=== PATIENT | female | born 1985 | race Caucasian/White ===

== ENCOUNTER 2018-05-08 20:24 | Emergency (ER) | payer OTHER, MEDICAID ==
[~2018-05-08] VITALS: Ht 152.4 cm; Wt 65.8 kg
[~2018-05-08 20:24] MED LIST: AZITHROMYCIN PO; CLEOCIN HCL150 MG; CLEOCIN HCL300 MG PO; DARVOCET-N 1001 EACH PO; HYDROCODONE-APA1 TA1 PO; LORTABELXR PO; NOHOMEMEDICATIONS; NORCO 5-325 TA1 EACH; NORCO 5-325 TA1 EACH PO; PERCOCET 5-3251 EACH PO; ZOFRAN 4 MG ORAL4 M1 DIS
[2018-05-08] MEDS ORDERED: NOHOMEMEDICATIONS (20:35)
[2018-05-08 21:09] LABS: ABSOLUTE BASOPHILS 0.1 thou/uL (0.0-0.2); ABSOLUTE EOSINOPHILS 0.1 thou/uL (0.0-0.7); ABSOLUTE MONOCYTES 0.9 thou/uL (0.0-1.2); ABSOLUTE NEUTROPHILS 3.7 thou/uL (1.6-8.1); BASOPHILS 1.1 %; EOSINOPHILS 1.4 %; HEMATOCRIT 36.5 % (37.0-47.0); HEMOGLOBIN 12.5 gm/dL (12.0-15.0); LYMPHOCYTES 29.9 %; MCHC 34.2 g/dL (28.0-37.0); MCV 87.5 fL (80.0-100.0); MONOCYTES 12.8 %; MPV 8.3 fl. (7.2-11.1); NUCLEATED RBCS 0 /100WBC; PLATELET COUNT* 252 thou/uL (150-400); POLYS 54.8 %; RBC 4.17 mil/uL (4.20-5.00); RDW-CV 13.5 % (10.5-14.5); WBC 6.8 thou/uL (4.0-11.0)
[2018-05-08 21:14] LABS: ANION GAP 8 mmol/L (7-16); BUN 8 mg/dL (7-18); CALCIUM 8.6 mg/dL (8.5-10.1); CHLORIDE 104 mmol/L (98-107); CO2 28 mmol/L (21-32); CREATININE 0.7 mg/dL (0.6-1.3); GLUCOSE 91 mg/dL (70-99); POTASSIUM 3.4 mmol/L (3.5-5.1); SODIUM 140 mmol/L (136-145)
[2018-05-08] MEDS ORDERED: NABUMETONE 750750 M1 PO (21:19)
[2018-05-08] MEDS ORDERED: MEDROLDOSEPACK PO (21:19)
[2018-05-08] MEDS ORDERED: FLEXERIL PO (21:19)
[2018-05-08] MEDS ORDERED: ZPAK PO (21:19)
[2018-05-08 21:22] LABS: ALBUMIN 3.5 g/dL (3.4-5.0); ALKALINE PHOSPHATASE 62 U/L (46-116); SGOT 17 U/L (15-37); SGPT 22 U/L (30-65); TOTAL BILIRUBIN 0.2 mg/dL (<0.1-1.0); TOTAL PROTEIN 6.9 g/dL (6.4-8.2); TROPONIN-I LEVEL <0.06 ng/mL (<0.06)
[2018-05-08 21:49] VITALS: BP 140/95
--- NOTE | 2018-05-09 18:05 | EKG ---
[place] [address] ELECTROCARDIOGRAM REPORT Name: SUGEY MCGEE Room: [facility]#: [id number] Admission: 05/08/18 Attend Phys: Discharge: 05/08/18 Date of : 83 Report #: [id number] THIS REPORT FOR: //name// [facility] ED Test Date: 2018-05-08 Test Time: 20:42:06 Pat Name: SUGEY MCGEE Department: Room: Gender: F Offc Spec: Alison VILLAREAL : 1985 Requested By: Bonnie Lowe Order Number: [id number] MD: Herson Roy Measurements Intervals [place] Rate: 62 P: 18 OR: 214 QRS: 53 QRSD: 90 T: 6 QT: 383 QTc: 389 Interpretive Statements Sinus rhythm Prolonged OR interval Nonspecific T-wave flattening No previous ECG available for comparison Electronically Signed On 05-09-2018 18:05:21 [employer]ING [employer]IST by Herson Roy [email or web address] <ELECTRONICALLY SIGNED> By: Herson Roy MD, [facility] 05/09/18 1805 41 41 Herson Roy MD, FACC /EPI
== END 2018-05-08 21:54 | disposition home or self-care (01) ==
LOC: M.ERS 20:24
PROVIDERS: Nurse Practitioner Family
DX: J20.9 Acute bronchitis, unspecified (principal); F17.210 Nicotine dependence, cigarettes, uncomplicated; F90.9 Attention-deficit hyperactivity disorder, unspecified type; F31.9 Bipolar disorder, unspecified; Z88.0 Allergy status to penicillin